=== PATIENT | male | born 1990 | race Caucasian/White ===

== ENCOUNTER 2022-08-13 12:55 | Emergency (ER) | payer BC ==
[~2022-08-13] VITALS: Ht 193 cm; Wt 111.1 kg
== END 2022-08-13 18:20 | disposition home or self-care (01) ==
LOC: ER 12:55
DX: T67.01XA Heatstroke and sunstroke, initial encounter (principal); X08.8XXA Exposure to other specified smoke, fire and flames, initial encounter; Y93.9 Activity, unspecified; Y92.9 Unspecified place or not applicable